=== PATIENT | female | born 1995 | race Caucasian/White ===

== ENCOUNTER 2020-10-06 03:22 | Emergency (ER) | payer BC ==
--- NOTE | 2020-10-06 03:28 | ED ---
Abdominal Pain HPI - General Source: patient, family, RN notes reviewed, old records reviewed Mode of arrival: ambulatory Limitations: no limitations - History of Present Illness MD Complaint: flank pain (Right-sided) -: hour(s) Location: RLQ, R flank Radiation: R flank Migration to: suprapubic Severity: severe Severity scale (1-10): 8 Quality: stabbing Consistency: constant Improves With: nothing Worsens With: nothing Context: other (none) Associated Symptoms: nausea Treatments Prior to Arrival: other (none) <Aguilar Rosales - Last Filed: 10/06/20 03:49> <Shawn Stark - Last Filed: 10/06/20 08:09> - General Chief Complaint: Abdominal Pain Stated Complaint: Abd Pain Time Seen by Provider: 10/06/20 03:27 - History of Present Illness Initial Comments: This is a 25-year-old female DF for evaluation she presents today for evaluation of 3 days of significant right flank pain right lower quadrant abdominal pain suprapubic pain. Patient has pain radiating to her groin. Pain is severe at times. Patient recently off. And states his pain is still with any patient never experience. She has no fever eating and drinking appropriately. Having bowel movements. No other significant symptoms. No dysuria (Aguilar Rosales) - Related Data Previous Rx's Medication Instructions Recorded Ibuprofen [Motrin] 600 mg PO Q6HR PRN #20 tab 10/06/20 Allergies Allergy/AdvReac Type Severity Reaction Status Date / Time No Known Allergies Allergy Verified 10/06/20 03:27 Review of Systems ROS Other: All systems not noted in ROS Statement are negative. <Aguilar Rosales - Last Filed: 10/06/20 03:49> ROS Other: All systems not noted in ROS Statement are negative. <Shawn Stark - Last Filed: 10/06/20 08:09> ROS Statement: Those systems with pertinent positive or pertinent negative responses have been documented in the HPI. Past Medical History Past Medical History: No Reported History History of Any Multi-Drug Resistant Organisms: None Reported Past Surgical History: No Surgical Hx Reported Past Psychological History: No Psychological Hx Reported Smoking Status: Never smoker Past Alcohol Use History: None Reported Past Drug Use History: None Reported <Aguilar Rosales - Last Filed: 10/06/20 03:49> General Exam Limitations: no limitations General appearance: alert, in no apparent distress Head exam: Present: atraumatic, normocephalic, normal inspection Eye exam: Present: normal appearance, PERRL, EOMI. Absent: scleral icterus, conjunctival injection, periorbital swelling ENT exam: Present: normal exam, mucous membranes moist Neck exam: Present: normal inspection. Absent: tenderness, meningismus, lymphadenopathy Respiratory exam: Present: normal lung sounds bilaterally. Absent: respiratory distress, wheezes, rales, rhonchi, stridor Cardiovascular Exam: Present: regular rate, normal rhythm, normal heart sounds. Absent: systolic murmur, diastolic murmur, rubs, gallop, clicks GI/Abdominal exam: Present: soft, normal bowel sounds. Absent: distended, tenderness, guarding, rebound, rigid Extremities exam: Present: normal inspection, full ROM, normal capillary refill. Absent: tenderness, pedal edema, joint swelling, calf tenderness Back exam: Present: normal inspection Neurological exam: Present: alert, oriented X3, CN II-XII intact Psychiatric exam: Present: normal affect, normal mood Skin exam: Present: warm, dry, intact, normal color. Absent: rash <Aguilar Rosales - Last Filed: 10/06/20 03:49> Course <Aguilar Rosales - Last Filed: 10/06/20 03:49> Vital Signs 10/06/20 10/06/20 03:22 07:00 Temperature 98.6 F 98.1 F Pulse Rate 106 H 86 Respiratory 22 18 Rate Blood Pressure 154/93 115/75 O2 Sat by Pulse 98 98 Oximetry - Reevaluation(s) Reevaluation #1: 10/06/20 03:51 Medical record is reviewed (Aguilar Rosales) Medical Decision Making - Lab Data Result diagrams: 10/06/20 03:48 10/06/20 03:48 - Radiology Data Radiology results: report reviewed (Pelvic ultrasound shows possible uterine fibroid. Otherwise normal. CT abdomen pelvis shows multiple pericecal lymph nodes. Normal appendix.) <Shawn Stark - Last Filed: 10/06/20 08:09> - Medical Decision Making Patient reevaluated and resting comfortably in bed. Patient states symptoms are similar to discomfort she has with her menstrual cycle. Patient and family are updated on results and need for follow-up. Specifically updated on need for follow-up with CT results. Abdomen soft and nontender (Lincoln,Shawn) - Lab Data Lab Results 10/06/20 10/06/20 10/06/20 Range/Units 03:33 03:33 03:48 WBC 9.6 (3.8-10.6) k/uL RBC 4.88 (3.80-5.40) m/uL Hgb 14.1 (11.4-16.0) gm/dL Hct 43.4 (34.0-46.0) % MCV 88.9 (80.0-100.0) fL MCH 28.8 (25.0-35.0) pg MCHC 32.4 (31.0-37.0) g/dL RDW 13.1 (11.5-15.5) % Plt Count 414 (150-450) k/uL MPV 7.3 Neutrophils % 63 % Lymphocytes % 28 % Monocytes % 6 % Eosinophils % 1 % Basophils % 0 % Neutrophils # 6.0 (1.3-7.7) k/uL Lymphocytes # 2.7 (1.0-4.8) k/uL Monocytes # 0.5 (0-1.0) k/uL Eosinophils # 0.1 (0-0.7) k/uL Basophils # 0.0 (0-0.2) k/uL Sodium (137-145) mmol/L Potassium (3.5-5.1) mmol/L Chloride (98-107) mmol/L Carbon Dioxide (22-30) mmol/L Anion Gap mmol/L BUN (7-17) mg/dL Creatinine (0.52-1.04) mg/dL Est GFR (CKD-EPI)AfAm (>60 ml/min/1.73 sqM) Est GFR (CKD-EPI)NonAf (>60 ml/min/1.73 sqM) Glucose (74-99) mg/dL Calcium (8.4-10.2) mg/dL Total Bilirubin (0.2-1.3) mg/dL AST (14-36) U/L ALT (4-34) U/L Alkaline Phosphatase (38-126) U/L Total Protein (6.3-8.2) g/dL Albumin (3.5-5.0) g/dL Amylase (30-110) U/L Lipase (23-300) U/L Urine Color Light Yellow Urine Appearance Cloudy H (Clear) Urine pH 6.0 (5.0-8.0) Ur Specific Franklin 1.014 (1.001-1.035) Urine Protein Negative (Negative) Urine Glucose (UA) Negative (Negative) Urine Ketones Negative (Negative) Urine Blood Negative (Negative) Urine Nitrite Negative (Negative) Urine Bilirubin Negative (Negative) Urine Urobilinogen <2.0 (<2.0) mg/dL Ur Leukocyte Esterase Large H (Negative) Urine RBC 1 (0-5) /hpf Urine WBC 3 (0-5) /hpf Ur Squamous Epith Cells 7 H (0-4) /hpf Urine Bacteria Rare H (None) /hpf Urine HCG, Qual Not Detected (Not Detectd) 10/06/20 Range/Units 03:48 WBC (3.8-10.6) k/uL RBC (3.80-5.40) m/uL Hgb (11.4-16.0) gm/dL Hct (34.0-46.0) % MCV (80.0-100.0) fL MCH (25.0-35.0) pg MCHC (31.0-37.0) g/dL RDW (11.5-15.5) % Plt Count (150-450) k/uL MPV Neutrophils % % Lymphocytes % % Monocytes % % Eosinophils % % Basophils % % Neutrophils # (1.3-7.7) k/uL Lymphocytes # (1.0-4.8) k/uL Monocytes # (0-1.0) k/uL Eosinophils # (0-0.7) k/uL Basophils # (0-0.2) k/uL Sodium 137 (137-145) mmol/L Potassium 4.0 (3.5-5.1) mmol/L Chloride 103 (98-107) mmol/L Carbon Dioxide 22 (22-30) mmol/L Anion Gap 12 mmol/L BUN 15 (7-17) mg/dL Creatinine 0.77 (0.52-1.04) mg/dL Est GFR (CKD-EPI)AfAm >90 (>60 ml/min/1.73 sqM) Est GFR (CKD-EPI)NonAf >90 (>60 ml/min/1.73 sqM) Glucose 120 H (74-99) mg/dL Calcium 9.6 (8.4-10.2) mg/dL Total Bilirubin 0.1 L (0.2-1.3) mg/dL AST 20 (14-36) U/L ALT 15 (4-34) U/L Alkaline Phosphatase 83 (38-126) U/L Total Protein 7.3 (6.3-8.2) g/dL Albumin 4.3 (3.5-5.0) g/dL Amylase 61 (30-110) U/L Lipase 110 (23-300) U/L Urine Color Urine Appearance (Clear) Urine pH (5.0-8.0) Ur Specific Franklin (1.001-1.035) Urine Protein (Negative) Urine Glucose (UA) (Negative) Urine Ketones (Negative) Urine Blood (Negative) Urine Nitrite (Negative) Urine Bilirubin (Negative) Urine Urobilinogen (<2.0) mg/dL Ur Leukocyte Esterase (Negative) Urine RBC (0-5) /hpf Urine WBC (0-5) /hpf Ur Squamous Epith Cells (0-4) /hpf Urine Bacteria (None) /hpf Urine HCG, Qual (Not Detectd) Disposition <Aguilar Rosales - Last Filed: 10/06/20 03:49> Is patient prescribed a controlled substance at d/c from ED?: No Time of Disposition: 08:08 <Shawn Stark - Last Filed: 10/06/20 08:09> Clinical Impression: Abdominal pain Disposition: HOME SELF-CARE Condition: Stable Instructions (If sedation given, give patient instructions): Abdominal Pain (ED), Pelvic Pain in Women (ED) Additional Instructions: Please follow-up with primary care physician in the next day or 2 for recheck. Have primary care physician review computed tomography scan results. Return for fever, increased pain, worsening or change in symptoms or other concerns. Prescription has been sent to your pharmacy. Prescriptions: Ibuprofen [Motrin] 600 mg PO Q6HR PRN #20 tab PRN Reason: Pain Referrals: Ashly Sullivan DO [Primary Care Provider] - 1-2 days
[2020-10-06] MEDS ORDERED: KETOROLAC 15 MG/ML 1 ML VIAL IVP STA (03:44)
[2020-10-06] MEDS ORDERED: SODIUM CHLORIDE 0.9% 1,000 ML IV STA (03:44)
[2020-10-06] MEDS ORDERED: MORPHINE SULFATE 4 MG/ML SYRINGE IV STA (03:44)
[2020-10-06 03:48] LABS: Appearance,Urine Cloudy (Clear); Bacteria,Urine Rare /hpf; Bilirubin,Urine Negative (Negative); Blood,Urine Negative (Negative); Color,Urine Light Yellow; Glucose,Urine (UA) Negative (Negative); Ketones,Urine Negative (Negative); Leukocyte Esterase,Urine Large (Negative); Nitrite,Urine Negative (Negative); Protein,Urine Negative (Negative); RBC,Urine 1 /hpf (0-5); Specific Gravity,Urine 1.014 (1.001-1.035); Squamous Epithelial Cell,Urine 7 /hpf (0-4); Urobilinogen,Urine <2.0 mg/dL (<2.0); WBC,Urine 3 /hpf (0-5)
[2020-10-06 04:08] LABS: Basophils % (A) 0 %; Eosinophils # (A) 0.1 k/uL (0-0.7); Eosinophils % (A) 1 %; HCT 43.4 % (34.0-46.0); HGB 14.1 gm/dL (11.4-16.0); Lymphocytes # (A) 2.7 k/uL (1.0-4.8); Lymphocytes % (A) 28 %; MCH 28.8 pg (25.0-35.0); MCHC 32.4 g/dL (31.0-37.0); MCV 88.9 fL (80.0-100.0); Mean Platelet Volume 7.3; Monocytes # (A) 0.5 k/uL (0-1.0); Monocytes % (A) 6 %; Neutrophils % (A) 63 %; Platelet Count 414 k/uL (150-450); RBC 4.88 m/uL (3.80-5.40); RDW 13.1 % (11.5-15.5); WBC 9.6 k/uL (3.8-10.6)
[2020-10-06 04:20] LABS: ALT 15 U/L (4-34); AST 20 U/L (14-36); African American GFR (CKD) >90 (>60 ml/min/1.73 sqM); Albumin 4.3 g/dL (3.5-5.0); Alkaline Phosphatase 83 U/L (38-126); Amylase 61 U/L (30-110); Anion Gap 12 mmol/L; Blood Urea Nitrogen 15 mg/dL (7-17); Calcium 9.6 mg/dL (8.4-10.2); Carbon Dioxide 22 mmol/L (22-30); Chloride 103 mmol/L (98-107); Glucose 120 mg/dL (74-99); Lipase 110 U/L (23-300); Non-African American GFR(CKD) >90 (>60 ml/min/1.73 sqM); Sodium 137 mmol/L (137-145); Total Bilirubin 0.1 mg/dL (0.2-1.3); Total Protein 7.3 g/dL (6.3-8.2)
--- NOTE | 2020-10-06 05:02 | CT ---
EXAMINATION TYPE: CT abdomen pelvis wo con DATE OF EXAM: 10/06/2020 COMPARISON: None HISTORY: RLQ pain CT DLP: 1140.4 mGycm Automated exposure control for dose reduction was used. Lung bases are clear. There is no pleural effusion. Heart size is normal. There is no pericardial eff usion. Liver spleen stomach pancreas gallbladder appear normal. The bile ducts are not dilated. There is no adrenal mass. Kidneys have normal size and contour. There is no hydronephrosis. Ureters a re not dilated. There is no retroperitoneal adenopathy. Appendix appears normal. There are numerous p ericecal lymph nodes. I see no intestinal wall thickening. There are no dilated loops. There is no me senteric edema. There is no ascites or free air. Uterus is anteverted. There is no free fluid in the pelvis. Bladder distends smoothly. There is no in guinal hernia. There is no sign of a pelvic mass. There is no evidence of bowel obstruction. The lumbar vertebra have normal alignment. Posterior elements are intact. The bony pelvis is intact. IMPRESSION: Multiple pericecal lymph nodes. Normal appendix. No intestinal wall thickening seen to suggest any in flammatory bowel disease.
[2020-10-06 07:09] VITALS: BP 115/75; RESP 18; TEMP 98.1
--- NOTE | 2020-10-06 07:29 | US ---
EXAMINATION TYPE: US transvaginal DATE OF EXAM: 10/06/2020 COMPARISON: CLINICAL HISTORY: pain/torsion. Right pelvic pain TECHNIQUE: Transvaginal (TV). Date of LMP: 09/30/2020, G0 EXAM MEASUREMENTS: Uterus: 7.3 x 5.0 x 3.4 cm Endometrial Stripe: 0.3 cm Right Ovary: 3.3 x 1.6 x 2.1 cm Left Ovary: 3.2 x 2.0 x 1.6 cm 1. Uterus: Anteverted Right fundal complex lesion seen = 1.7 x 1.8 x 1.9 cm, nonvascular 2. Endometrium: wnl 3. Right Ovary: follicles seen 4. Left Ovary: follicles seen Spectral, color and waveform doppler imaging shows good arterial and venous flow within the ovaries ; there is no evidence for ovarian torsion. 5. Bilateral Adnexa: wnl 6. Posterior cul-de-sac: no free fluid IMPRESSION: 1. There may be a uterine fibroid within the fundus of uterus. 2. Remainder of the transvaginal ultrasound appears normal
[2020-10-06] MEDS ORDERED: ACET/COD 300 MG/30 MG STARTER PACK 6 TAB BTL PO STA (08:09)
[2020-10-06 08:18] VITALS: PULSE 88
== END 2020-10-06 08:17 | disposition home or self-care (01) ==
LOC: EC 03:22
DX: R10.31 Right lower quadrant pain (principal)
CPT/HCPCS: 36415; 80053; 82150; 83690; 85025; 81001; 81025; 93975; 76830; 74176; 96374; 96375; 96361; 99284; J2270; J1885